=== PATIENT | female | born 1960 | race Caucasian/White ===

== ENCOUNTER 2016-06-10 07:10 | Outpatient (CLI) | payer OTHER ==
[2016-06-10 08:36] LABS: #Basophils 0.1 thou/uL (0.0-0.2); #Eosinphils 1.2 thou/uL (0.0-0.7); #Lymphocytes 2.7 thou/uL (1.20-3.40); #Monocytes 0.5 thou/uL (0.11-0.59); #Neutrophils 6.7 thou/uL (1.40-6.50); %Basophils 1.3 % (0.0-1.0); %Eosinophils 10.7 % (0.0-10.0); %Monocytes 4.5 % (0.0-10.0); Mean Platelet Volume 6.7 fL (7.4-10.4); Red Blood Cell (RBC) Count 4.97 mill/uL (4.20-5.40); White Blood Cell (WBC) Count 11.2 thou/uL (4.8-10.8)
[2016-06-10 08:44] LABS: ALT (SGPT) 21 U/L (0-55); AST (SGOT) 14 U/L (5-34); Alkaline Phosphatase 57 U/L (40-150); Anion Gap 19 mmol/L (10-20); BUN (Urea Nitrogen) 23 mg/dL (9.8-20.1); Bilirubin, Total 0.3 mg/dL (0.2-1.2); Calc. Creatinine Clearance 0 mL/min (70-130); Calcium 9.2 mg/dL (7.8-10.44); Carbon Dioxide 18 mmol/L (22-29); Chloride 105 mmol/L (98-107); Estimated GFR-MDRD 57; Globulin 2.7 g/dL (2.4-3.5); Protein, Total 6.7 g/dL (6.0-8.3)
== END 2016-06-10 07:11 | disposition home or self-care (01) ==
LOC: BURLAB 07:10
PROVIDERS: ATTEND Internal Medicine Rheumatology
DX: M05.79 Rheumatoid arthritis with rheumatoid factor of multiple sites without organ or systems involvement (principal)
CPT/HCPCS: 36415; 80053; 85025; 85652; 86140

== ENCOUNTER 2016-08-29 07:18 | Outpatient (CLI) | payer OTHER ==
[2016-08-29 07:43] LABS: #Basophils 0.2 thou/uL (0.0-0.2); #Monocytes 0.9 thou/uL (0.11-0.59); #Neutrophils 7.2 thou/uL (1.40-6.50); %Eosinophils 8.9 % (0.0-10.0); %Lymphocytes 17.8 % (21.0-51.0); %Monocytes 7.7 % (0.0-10.0); %Neutrophils 63.7 % (42.0-75.0); Hemoglobin 13.5 g/dL (12.0-16.0); Mean Corpuscular HGB CONC 33.2 g/dL (32.0-36.0); Mean Corpuscular Hemoglobin 30.3 pg (27.0-31.0); Mean Corpuscular Volume 91.1 fl (81.0-99.0); Mean Platelet Volume 7.7 fL (7.4-10.4); Platelet Count 358 thou/uL (130-400); RBC Distribution Width 16.4 % (11.5-14.5); Red Blood Cell (RBC) Count 4.45 mill/uL (4.20-5.40); White Blood Cell (WBC) Count 11.2 thou/uL (4.8-10.8)
[2016-08-29 08:02] LABS: ALT (SGPT) 22 U/L (8-55); AST (SGOT) 16 U/L (5-34); Albumin 4.1 g/dL (3.5-5.0); Alkaline Phosphatase 62 U/L (40-150); Anion Gap 18 mmol/L (10-20); BUN (Urea Nitrogen) 22 mg/dL (9.8-20.1); Bilirubin, Total 0.6 mg/dL (0.2-1.2); Calc. Creatinine Clearance 0 mL/min (70-130); Calcium 9.4 mg/dL (7.8-10.44); Carbon Dioxide 18 mmol/L (22-29); Chloride 106 mmol/L (98-107); Estimated GFR-MDRD 47; Globulin 2.9 g/dL (2.4-3.5); Glucose 232 mg/dL (70-105); Potassium 4.2 mmol/L (3.5-5.1); Sodium 138 mmol/L (136-145)
== END 2016-08-29 07:19 | disposition home or self-care (01) ==
LOC: BURLAB 07:18
PROVIDERS: ATTEND Internal Medicine Rheumatology
DX: M05.79 Rheumatoid arthritis with rheumatoid factor of multiple sites without organ or systems involvement (principal)
CPT/HCPCS: 36415; 80053; 85025; 85652; 86140

== ENCOUNTER 2016-12-05 07:27 | Outpatient (CLI) | payer OTHER ==
[2016-12-05 08:04] LABS: #Basophils 0.1 thou/uL (0.0-0.2); #Eosinphils 1.2 thou/uL (0.0-0.7); #Lymphocytes 2.8 thou/uL (1.20-3.40); #Monocytes 0.7 thou/uL (0.11-0.59); %Basophils 0.7 % (0.0-1.0); %Eosinophils 10.1 % (0.0-10.0); %Monocytes 5.6 % (0.0-10.0); %Neutrophils 59.6 % (42.0-75.0); Hemoglobin 13.4 g/dL (12.0-16.0); Mean Corpuscular Hemoglobin 30.8 pg (27.0-31.0); Mean Corpuscular Volume 90.5 fl (81.0-99.0); Mean Platelet Volume 7.9 fL (7.4-10.4); Platelet Count 279 thou/uL (130-400); RBC Distribution Width 13.2 % (11.5-14.5); Red Blood Cell (RBC) Count 4.34 mill/uL (4.20-5.40); White Blood Cell (WBC) Count 11.7 thou/uL (4.8-10.8)
[2016-12-05 08:17] LABS: ALT (SGPT) 20 U/L (8-55); AST (SGOT) 13 U/L (5-34); Albumin 3.9 g/dL (3.5-5.0); Alkaline Phosphatase 62 U/L (40-150); Anion Gap 16 mmol/L (10-20); BUN (Urea Nitrogen) 17 mg/dL (9.8-20.1); Bilirubin, Total 0.4 mg/dL (0.2-1.2); Calc. Creatinine Clearance 0 mL/min (70-130); Calcium 9.2 mg/dL (7.8-10.44); Carbon Dioxide 22 mmol/L (22-29); Chloride 105 mmol/L (98-107); Estimated GFR-MDRD 68; Globulin 2.8 g/dL (2.4-3.5); Glucose 180 mg/dL (70-105); Potassium 4.8 mmol/L (3.5-5.1); Protein, Total 6.7 g/dL (6.0-8.3); Sodium 138 mmol/L (136-145)
[2016-12-05 17:15] LABS: CRP (Inflammatory) 1.17 mg/dL (= or < 0.5)
== END 2016-12-05 07:28 | disposition home or self-care (01) ==
LOC: BURLAB 07:27
PROVIDERS: ATTEND Internal Medicine Rheumatology
DX: M05.79 Rheumatoid arthritis with rheumatoid factor of multiple sites without organ or systems involvement (principal)
CPT/HCPCS: 36415; 80053; 85025; 85652; 86140

== ENCOUNTER 2019-12-03 07:32 | Outpatient (CLI) | payer OTHER ==
[2019-12-03 08:13] LABS: #Basophils 0.1 thou/uL (0.0-0.2); #Eosinphils 1.5 thou/uL (0.0-0.7); #Lymphocytes 2.6 thou/uL (1.20-3.40); #Monocytes 0.7 thou/uL (0.11-0.59); #Neutrophils 8.4 thou/uL (1.40-6.50); %Eosinophils 11.2 % (0.0-10.0); %Lymphocytes 19.4 % (21.0-51.0); %Monocytes 5.4 % (0.0-10.0); %Neutrophils 63.1 % (42.0-75.0); Hemoglobin 11.9 g/dL (12.0-16.0); Mean Corpuscular HGB CONC 31.3 g/dL (32.0-36.0); Mean Corpuscular Hemoglobin 28.6 pg (27.0-31.0); Mean Corpuscular Volume 91.2 fL (78.0-98.0); Mean Platelet Volume 8.1 fL (7.4-10.4); Platelet Count 302 thou/uL (130-400); RBC Distribution Width 13.9 % (11.5-14.5); Red Blood Cell (RBC) Count 4.18 mill/uL (4.20-5.40); White Blood Cell (WBC) Count 13.3 thou/uL (4.8-10.8)
[2019-12-03 08:23] LABS: ALT (SGPT) 24 U/L (8-55); AST (SGOT) 16 U/L (5-34); Albumin 4.1 g/dL (3.5-5.0); Alkaline Phosphatase 51 U/L (40-110); Anion Gap 18 mmol/L (10-20); BUN (Urea Nitrogen) 23 mg/dL (9.8-20.1); Bilirubin, Total 0.2 mg/dL (0.2-1.2); CRP (Inflammatory) 0.64 mg/dL (= or < 0.5); Calc. Creatinine Clearance 0 mL/min (70-130); Calcium 8.8 mg/dL (7.8-10.44); Carbon Dioxide 21 mmol/L (22-29); Chloride 101 mmol/L (98-107); Estimated GFR-MDRD 51; Globulin 2.6 g/dL (2.4-3.5); Glucose 192 mg/dL (70-105); Potassium 4.6 mmol/L (3.5-5.1); Protein, Total 6.7 g/dL (6.0-8.3); Sodium 135 mmol/L (136-145)
== END 2019-12-03 07:33 | disposition home or self-care (01) ==
LOC: BURLAB 07:32
PROVIDERS: ATTEND Internal Medicine Rheumatology
DX: M05.79 Rheumatoid arthritis with rheumatoid factor of multiple sites without organ or systems involvement (principal)
CPT/HCPCS: 36415; 80053; 85025; 85652; 86140

== ENCOUNTER 2020-03-05 07:23 | Outpatient (CLI) | payer OTHER ==
[2020-03-05 07:56] LABS: #Basophils 0.1 thou/uL (0.0-0.2); #Eosinphils 0.3 thou/uL (0.0-0.7); #Lymphocytes 2.7 thou/uL (1.20-3.40); #Monocytes 0.7 thou/uL (0.11-0.59); #Neutrophils 8.2 thou/uL (1.40-6.50); %Basophils 0.8 % (0.0-1.0); %Eosinophils 2.9 % (0.0-10.0); %Lymphocytes 22.2 % (21.0-51.0); %Monocytes 6.1 % (0.0-10.0); %Neutrophils 68.1 % (42.0-75.0); Hemoglobin 12.6 g/dL (12.0-16.0); Mean Corpuscular HGB CONC 32.2 g/dL (32.0-36.0); Mean Corpuscular Hemoglobin 27.6 pg (27.0-31.0); Mean Corpuscular Volume 85.7 fL (78.0-98.0); Platelet Count 335 thou/uL (130-400); Red Blood Cell (RBC) Count 4.57 mill/uL (4.20-5.40)
[2020-03-05 08:10] LABS: ALT (SGPT) 19 U/L (8-55); AST (SGOT) 9 U/L (5-34); Albumin 3.8 g/dL (3.5-5.0); Alkaline Phosphatase 52 U/L (40-110); Anion Gap 16 mmol/L (10-20); BUN (Urea Nitrogen) 22 mg/dL (9.8-20.1); Bilirubin, Total 0.3 mg/dL (0.2-1.2); CRP (Inflammatory) 0.72 mg/dL (= or < 0.5); Calc. Creatinine Clearance 0 mL/min (70-130); Calcium 8.7 mg/dL (7.8-10.44); Carbon Dioxide 24 mmol/L (22-29); Chloride 101 mmol/L (98-107); Estimated GFR-MDRD 69; Globulin 2.5 g/dL (2.4-3.5); Glucose 166 mg/dL (70-105); Potassium 4.6 mmol/L (3.5-5.1); Protein, Total 6.3 g/dL (6.0-8.3); Sodium 136 mmol/L (136-145)
== END 2020-03-05 07:24 | disposition home or self-care (01) ==
LOC: BURLAB 07:23
PROVIDERS: ATTEND Internal Medicine Rheumatology
DX: M05.79 Rheumatoid arthritis with rheumatoid factor of multiple sites without organ or systems involvement (principal)
CPT/HCPCS: 36415; 80053; 85025; 85652; 86140

== ENCOUNTER 2020-05-12 07:33 | Outpatient (CLI) | payer OTHER ==
[2020-05-12 11:22] LABS: #Basophils 0.1 thou/uL (0.0-0.2); #Eosinphils 0.3 thou/uL (0.0-0.7); #Lymphocytes 2.4 thou/uL (1.20-3.40); #Monocytes 0.6 thou/uL (0.11-0.59); #Neutrophils 9.1 thou/uL (1.40-6.50); %Basophils 0.7 % (0.0-1.0); %Eosinophils 2.5 % (0.0-10.0); %Lymphocytes 19.6 % (21.0-51.0); %Monocytes 4.5 % (0.0-10.0); %Neutrophils 72.7 % (42.0-75.0); Hemoglobin 12.1 g/dL (12.0-16.0); Mean Corpuscular HGB CONC 31.5 g/dL (32.0-36.0); Mean Corpuscular Hemoglobin 27.4 pg (27.0-31.0); Mean Corpuscular Volume 87.1 fL (78.0-98.0); Mean Platelet Volume 7.7 fL (7.4-10.4); Platelet Count 421 thou/uL (130-400); RBC Distribution Width 16.5 % (11.5-14.5); Red Blood Cell (RBC) Count 4.41 mill/uL (4.20-5.40); White Blood Cell (WBC) Count 12.4 thou/uL (4.8-10.8)
[2020-05-12 11:54] LABS: ALT (SGPT) 32 U/L (8-55); AST (SGOT) 25 U/L (5-34); Alkaline Phosphatase 54 U/L (40-110); Anion Gap 15 mmol/L (10-20); BUN (Urea Nitrogen) 25 mg/dL (9.8-20.1); Bilirubin, Total 0.2 mg/dL (0.2-1.2); CRP (Inflammatory) 0.77 mg/dL (= or < 0.5); Calc. Creatinine Clearance 0 mL/min (70-130); Calcium 9.3 mg/dL (7.8-10.44); Carbon Dioxide 26 mmol/L (22-29); Chloride 99 mmol/L (98-107); Globulin 2.5 g/dL (2.4-3.5); Glucose 235 mg/dL (70-105); Potassium 5.4 mmol/L (3.5-5.1); Protein, Total 6.5 g/dL (6.0-8.3); Sodium 135 mmol/L (136-145)
== END 2020-05-12 07:34 | disposition home or self-care (01) ==
LOC: BURLAB 07:33
PROVIDERS: ATTEND Internal Medicine Rheumatology
DX: M05.79 Rheumatoid arthritis with rheumatoid factor of multiple sites without organ or systems involvement (principal)
CPT/HCPCS: 36415; 80053; 85025; 85652; 86140

== ENCOUNTER 2020-08-11 07:13 | Outpatient (CLI) | payer OTHER ==
[2020-08-11 08:04] LABS: #Basophils 0.1 thou/uL (0.0-0.2); #Eosinphils 0.3 thou/uL (0.0-0.7); #Lymphocytes 2.2 thou/uL (1.20-3.40); #Monocytes 0.6 thou/uL (0.11-0.59); #Neutrophils 7.5 thou/uL (1.40-6.50); %Basophils 0.8 % (0.0-1.0); %Eosinophils 2.9 % (0.0-10.0); %Lymphocytes 20.2 % (21.0-51.0); %Monocytes 5.7 % (0.0-10.0); %Neutrophils 70.5 % (42.0-75.0); Hemoglobin 13.1 g/dL (12.0-16.0); Mean Corpuscular Hemoglobin 30.7 pg (27.0-31.0); Mean Corpuscular Volume 90.2 fL (78.0-98.0); Platelet Count 371 thou/uL (130-400); RBC Distribution Width 14.5 % (11.5-14.5); Red Blood Cell (RBC) Count 4.28 mill/uL (4.20-5.40); White Blood Cell (WBC) Count 10.7 thou/uL (4.8-10.8)
[2020-08-11 08:21] LABS: ALT (SGPT) 28 U/L (8-55); AST (SGOT) 13 U/L (5-34); Albumin 4.2 g/dL (3.5-5.0); Alkaline Phosphatase 49 U/L (40-110); Anion Gap 18 mmol/L (10-20); BUN (Urea Nitrogen) 21 mg/dL (9.8-20.1); Bilirubin, Total 0.3 mg/dL (0.2-1.2); Calc. Creatinine Clearance 0 mL/min (70-130); Calcium 9.5 mg/dL (7.8-10.44); Carbon Dioxide 21 mmol/L (22-29); Chloride 102 mmol/L (98-107); Globulin 2.3 g/dL (2.4-3.5); Glucose 231 mg/dL (70-105); Potassium 4.7 mmol/L (3.5-5.1); Protein, Total 6.5 g/dL (6.0-8.3); Sodium 136 mmol/L (136-145)
== END 2020-08-11 07:14 | disposition home or self-care (01) ==
LOC: BURLABSP 07:13
PROVIDERS: ATTEND Internal Medicine Rheumatology
DX: M05.79 Rheumatoid arthritis with rheumatoid factor of multiple sites without organ or systems involvement (principal)
CPT/HCPCS: 36415; 80053; 85025; 85652; 86140

== ENCOUNTER 2020-11-02 07:24 | Outpatient (CLI) | payer OTHER ==
[2020-11-02 07:48] LABS: #Basophils 0.1 thou/uL (0.0-0.2); #Eosinphils 0.2 thou/uL (0.0-0.7); #Monocytes 0.7 thou/uL (0.11-0.59); #Neutrophils 7.7 thou/uL (1.40-6.50); %Eosinophils 1.6 % (0.0-10.0); %Lymphocytes 18.8 % (21.0-51.0); %Monocytes 6.8 % (0.0-10.0); %Neutrophils 71.8 % (42.0-75.0); Hemoglobin 12.1 g/dL (12.0-16.0); Mean Corpuscular HGB CONC 32.4 g/dL (32.0-36.0); Mean Corpuscular Hemoglobin 28.6 pg (27.0-31.0); Mean Corpuscular Volume 88.3 fL (78.0-98.0); Mean Platelet Volume 6.1 fL (7.4-10.4); Platelet Count 442 thou/uL (130-400); RBC Distribution Width 15.2 % (11.5-14.5); Red Blood Cell (RBC) Count 4.23 mill/uL (4.20-5.40); White Blood Cell (WBC) Count 10.7 thou/uL (4.8-10.8)
[2020-11-02 08:18] LABS: ALT (SGPT) 24 U/L (8-55); AST (SGOT) 16 U/L (5-34); Albumin 3.7 g/dL (3.5-5.0); Alkaline Phosphatase 52 U/L (40-110); Anion Gap 16 mmol/L (10-20); BUN (Urea Nitrogen) 14 mg/dL (9.8-20.1); Bilirubin, Total 0.3 mg/dL (0.2-1.2); CRP (Inflammatory) 2.36 mg/dL (= or < 0.5); Calc. Creatinine Clearance 0 mL/min (70-130); Calcium 9.4 mg/dL (7.8-10.44); Carbon Dioxide 24 mmol/L (22-29); Chloride 100 mmol/L (98-107); Globulin 2.6 g/dL (2.4-3.5); Glucose 158 mg/dL (70-105); Potassium 4.5 mmol/L (3.5-5.1); Protein, Total 6.3 g/dL (6.0-8.3); Sodium 135 mmol/L (136-145)
== END 2020-11-02 07:25 | disposition home or self-care (01) ==
LOC: BURLAB 07:24
PROVIDERS: ATTEND Internal Medicine Rheumatology
DX: M05.79 Rheumatoid arthritis with rheumatoid factor of multiple sites without organ or systems involvement (principal)
CPT/HCPCS: 36415; 80053; 85025; 85652; 86140

== ENCOUNTER 2021-02-09 07:15 | Outpatient (CLI) | payer OTHER ==
[2021-02-09 08:18] LABS: #Basophils 0.1 thou/uL (0.0-0.2); #Eosinphils 0.5 thou/uL (0.0-0.7); #Lymphocytes 2.6 thou/uL (1.20-3.40); #Monocytes 0.6 thou/uL (0.11-0.59); #Neutrophils 7.1 thou/uL (1.40-6.50); %Basophils 0.8 % (0.0-1.0); %Eosinophils 4.3 % (0.0-10.0); %Lymphocytes 24.3 % (21.0-51.0); %Monocytes 5.6 % (0.0-10.0); %Neutrophils 65.1 % (42.0-75.0); Hemoglobin 12.9 g/dL (12.0-16.0); Mean Corpuscular HGB CONC 32.8 g/dL (32.0-36.0); Mean Corpuscular Hemoglobin 29.6 pg (27.0-31.0); Mean Corpuscular Volume 90.2 fL (78.0-98.0); Mean Platelet Volume 6.9 fL (7.4-10.4); Platelet Count 363 thou/uL (130-400); RBC Distribution Width 15.5 % (11.5-14.5); Red Blood Cell (RBC) Count 4.35 mill/uL (4.20-5.40); White Blood Cell (WBC) Count 10.8 thou/uL (4.8-10.8)
[2021-02-09 08:37] LABS: ALT (SGPT) 37 U/L (8-55); AST (SGOT) 26 U/L (5-34); Alkaline Phosphatase 54 U/L (40-110); Anion Gap 16 mmol/L (10-20); BUN (Urea Nitrogen) 17 mg/dL (9.8-20.1); Bilirubin, Total 0.4 mg/dL (0.2-1.2); Calc. Creatinine Clearance 0 mL/min (70-130); Calcium 10.2 mg/dL (7.8-10.44); Carbon Dioxide 25 mmol/L (23-31); Chloride 100 mmol/L (98-107); Globulin 2.7 g/dL (2.4-3.5); Glucose 174 mg/dL (80-115); Potassium 4.9 mmol/L (3.5-5.1); Protein, Total 6.7 g/dL (5.8-8.1); Sodium 136 mmol/L (136-145)
== END 2021-02-09 07:16 | disposition home or self-care (01) ==
LOC: BURLAB 07:15
PROVIDERS: ATTEND Internal Medicine Rheumatology
DX: M05.79 Rheumatoid arthritis with rheumatoid factor of multiple sites without organ or systems involvement (principal)
CPT/HCPCS: 36415; 80053; 85025; 85652; 86140

== ENCOUNTER 2021-05-11 07:08 | Outpatient (CLI) | payer OTHER ==
[2021-05-11 07:54] LABS: #Basophils 0.1 thou/uL (0.0-0.2); #Eosinphils 0.3 thou/uL (0.0-0.7); #Lymphocytes 1.5 thou/uL (1.20-3.40); #Monocytes 0.3 thou/uL (0.11-0.59); #Neutrophils 5.1 thou/uL (1.40-6.50); %Basophils 1.3 % (0.0-1.0); %Eosinophils 4.4 % (0.0-10.0); %Lymphocytes 20.8 % (21.0-51.0); %Monocytes 4.6 % (0.0-10.0); Hemoglobin 12.8 g/dL (12.0-16.0); Mean Corpuscular Hemoglobin 29.4 pg (27.0-31.0); Mean Platelet Volume 7.3 fL (7.4-10.4); Platelet Count 310 thou/uL (130-400); RBC Distribution Width 14.2 % (11.5-14.5); Red Blood Cell (RBC) Count 4.36 mill/uL (4.20-5.40); White Blood Cell (WBC) Count 7.4 thou/uL (4.8-10.8)
[2021-05-11 08:16] LABS: ALT (SGPT) 47 U/L (8-55); AST (SGOT) 29 U/L (5-34); Albumin 3.8 g/dL (3.4-4.8); Alkaline Phosphatase 55 U/L (40-110); Anion Gap 15 mmol/L (10-20); BUN (Urea Nitrogen) 17 mg/dL (9.8-20.1); Bilirubin, Total 0.5 mg/dL (0.2-1.2); CRP (Inflammatory) 2.48 mg/dL (= or < 0.5); Calc. Creatinine Clearance 0 mL/min (70-130); Calcium 8.3 mg/dL (7.8-10.44); Carbon Dioxide 20 mmol/L (23-31); Chloride 103 mmol/L (98-107); Globulin 2.6 g/dL (2.4-3.5); Glucose 230 mg/dL (80-115); Potassium 4.3 mmol/L (3.5-5.1); Protein, Total 6.4 g/dL (5.8-8.1); Sodium 134 mmol/L (136-145)
== END 2021-05-11 07:09 | disposition home or self-care (01) ==
LOC: BURLAB 07:08
PROVIDERS: ATTEND Internal Medicine Rheumatology
DX: M05.79 Rheumatoid arthritis with rheumatoid factor of multiple sites without organ or systems involvement (principal)
CPT/HCPCS: 80053; 85025; 85652; 86140

== ENCOUNTER 2021-08-11 07:29 | Outpatient (CLI) | payer OTHER ==
[2021-08-11 08:12] LABS: ALT (SGPT) 24 U/L (8-55); AST (SGOT) 14 U/L (5-34); Albumin 3.8 g/dL (3.4-4.8); Alkaline Phosphatase 55 U/L (40-110); Anion Gap 16 mmol/L (10-20); BUN (Urea Nitrogen) 19 mg/dL (9.8-20.1); Bilirubin, Total 0.4 mg/dL (0.2-1.2); CRP (Inflammatory) 1.43 mg/dL (= or < 0.5); Calc. Creatinine Clearance 0 mL/min (70-130); Calcium 8.9 mg/dL (7.8-10.44); Carbon Dioxide 24 mmol/L (23-31); Chloride 101 mmol/L (98-107); Globulin 3.4 g/dL (2.4-3.5); Glucose 231 mg/dL (80-115); Potassium 4.5 mmol/L (3.5-5.1); Protein, Total 7.2 g/dL (5.8-8.1); Sodium 136 mmol/L (136-145)
[2021-08-11 08:23] LABS: #Basophils 0.1 thou/uL (0.0-0.2); #Eosinphils 0.4 thou/uL (0.0-0.7); #Lymphocytes 1.7 thou/uL (1.20-3.40); #Monocytes 0.5 thou/uL (0.11-0.59); %Basophils 0.7 % (0.0-1.0); %Eosinophils 4.4 % (0.0-10.0); %Lymphocytes 17.8 % (21.0-51.0); %Monocytes 5.1 % (0.0-10.0); Hemoglobin 12.5 g/dL (12.0-16.0); Mean Corpuscular HGB CONC 33.3 g/dL (32.0-36.0); Mean Corpuscular Hemoglobin 30.2 pg (27.0-31.0); Mean Corpuscular Volume 90.7 fL (78.0-98.0); Platelet Count 334 thou/uL (130-400); RBC Distribution Width 13.9 % (11.5-14.5); Red Blood Cell (RBC) Count 4.13 mill/uL (4.20-5.40); White Blood Cell (WBC) Count 9.8 thou/uL (4.8-10.8)
== END 2021-08-11 07:30 | disposition home or self-care (01) ==
LOC: BURLAB 07:29
PROVIDERS: ATTEND Internal Medicine Rheumatology
DX: M05.79 Rheumatoid arthritis with rheumatoid factor of multiple sites without organ or systems involvement (principal)
CPT/HCPCS: 36415; 80053; 85025; 85652; 86140

== ENCOUNTER 2021-11-08 07:25 | Outpatient (CLI) | payer OTHER ==
[2021-11-08 07:45] LABS: #Basophils 0.1 thou/uL (0.0-0.2); #Eosinphils 0.1 thou/uL (0.0-0.7); #Lymphocytes 0.8 thou/uL (1.20-3.40); #Monocytes 0.9 thou/uL (0.11-0.59); #Neutrophils 7.3 thou/uL (1.40-6.50); %Eosinophils 1.3 % (0.0-10.0); %Lymphocytes 8.5 % (21.0-51.0); %Monocytes 9.9 % (0.0-10.0); %Neutrophils 79.3 % (42.0-75.0); Hemoglobin 12.3 g/dL (12.0-16.0); Mean Corpuscular HGB CONC 34.9 g/dL (32.0-36.0); Mean Corpuscular Hemoglobin 29.8 pg (27.0-31.0); Mean Corpuscular Volume 85.3 fL (78.0-98.0); Mean Platelet Volume 6.7 fL (7.4-10.4); Platelet Count 480 thou/uL (130-400); RBC Distribution Width 13.5 % (11.5-14.5); Red Blood Cell (RBC) Count 4.12 mill/uL (4.20-5.40); White Blood Cell (WBC) Count 9.1 thou/uL (4.8-10.8)
[2021-11-08 07:59] LABS: ALT (SGPT) 22 U/L (8-55); AST (SGOT) 22 U/L (5-34); Albumin 3.9 g/dL (3.4-4.8); Alkaline Phosphatase 84 U/L (40-110); Anion Gap 22 mmol/L (10-20); BUN (Urea Nitrogen) 40 mg/dL (9.8-20.1); Bilirubin, Total 0.6 mg/dL (0.2-1.2); Calc. Creatinine Clearance 0 mL/min (70-130); Calcium 10.3 mg/dL (7.8-10.44); Carbon Dioxide 19 mmol/L (23-31); Chloride 90 mmol/L (98-107); Estimated GFR 33; Globulin 4.1 g/dL (2.4-3.5); Glucose 205 mg/dL (80-115); Potassium 4.1 mmol/L (3.5-5.1); Sodium 127 mmol/L (136-145)
== END 2021-11-08 07:26 | disposition home or self-care (01) ==
LOC: BURLAB 07:25
PROVIDERS: ATTEND Internal Medicine Rheumatology
DX: M05.79 Rheumatoid arthritis with rheumatoid factor of multiple sites without organ or systems involvement (principal)
CPT/HCPCS: 36415; 80053; 85025; 85652; 86140

== ENCOUNTER 2021-12-06 07:59 | Emergency (ER) | payer BC ==
[2021-12-06 08:39] LABS: #Basophils 0.1 thou/uL (0.0-0.2); #Lymphocytes 0.9 thou/uL (1.20-3.40); #Monocytes 0.8 thou/uL (0.11-0.59); #Neutrophils 12.6 thou/uL (1.40-6.50); %Basophils 0.6 % (0.0-1.0); %Lymphocytes 6.5 % (21.0-51.0); %Monocytes 5.7 % (0.0-10.0); %Neutrophils 87.3 % (42.0-75.0); Hemoglobin 14.2 g/dL (12.0-16.0); Mean Corpuscular HGB CONC 32.8 g/dL (32.0-36.0); Mean Corpuscular Volume 85.2 fL (78.0-98.0); Mean Platelet Volume 8.9 fL (7.4-10.4); Platelet Count 342 thou/uL (130-400); RBC Distribution Width 14.2 % (11.5-14.5); Red Blood Cell (RBC) Count 5.09 mill/uL (4.20-5.40); White Blood Cell (WBC) Count 14.5 thou/uL (4.8-10.8)
[2021-12-06 08:49] LABS: ALT (SGPT) 19 U/L (8-55); AST (SGOT) 10 U/L (5-34); Albumin 4.3 g/dL (3.4-4.8); Alkaline Phosphatase 75 U/L (40-110); Anion Gap 25 mmol/L (10-20); BUN (Urea Nitrogen) 43 mg/dL (9.8-20.1); Bilirubin, Total 0.7 mg/dL (0.2-1.2); Calc. Creatinine Clearance 0 mL/min (70-130); Calcium 9.9 mg/dL (7.8-10.44); Carbon Dioxide 20 mmol/L (23-31); Chloride 93 mmol/L (98-107); Estimated GFR 21; Globulin 4.2 g/dL (2.4-3.5); Glucose 330 mg/dL (80-115); Potassium 3.7 mmol/L (3.5-5.1); Protein, Total 8.5 g/dL (5.8-8.1); Sodium 134 mmol/L (136-145)
[2021-12-06 09:06] LABS: Bilirubin Large (Negative); Blood, Urine Trace (Negative); Clarity Slightly Cloudy (Clear); Glucose, Urine (Dipstick) 100 mg/dL (Negative); Ketone, Urine 15 mg/dL (Negative); Leukocyte Moderate (Negative); Nitrite Negative (Negative); Protein, Urine (Dipstick) 30 mg/dL (Neg-Trace); Urobilinogen 0.2 mg/dL (Less than 2)
[2021-12-06 09:16] LABS: Bacteria/HPF 2+ HPF (None Seen)
[2021-12-06] MEDS ORDERED: INSULIN REGULAR IN 0.9 % NACL 100 UNIT/100 ML BAG ONE (10:02)
== END 2021-12-06 10:32 | disposition short-term general hospital (02) ==
LOC: BURERS 07:59
DX: E11.10 Type 2 diabetes mellitus with ketoacidosis without coma (principal); N19 Unspecified kidney failure; M06.9 Rheumatoid arthritis, unspecified
CPT/HCPCS: 36415; 71045; 80053; 81003; 81015; 83880; 84484; 85025; 87086; 93005; 96374; J1815

== ENCOUNTER 2021-12-17 12:57 | Inpatient (IN) | payer BC ==
[2021-12-17 15:31] VITALS: BMI 31.1
[2021-12-17] MEDS ORDERED: Dextrose 5% in Water 1,000 ML IV PRN (17:08)
[2021-12-17] MEDS ORDERED: Dextrose 50% Abboject 50 ML SYRINGE SLOW IVP PRN (17:08)
[2021-12-17] MEDS ORDERED: INFLIXIMAB DYYB 100 MG IV SCH (18:00)
[2021-12-17] MEDS: HumaLOG 300 UNITS/3 ML VIAL SC PRN (18:36)
[2021-12-17] MEDS: Apixaban 5 MG TAB PO SCH (20:21)
[2021-12-17] MEDS: Cyanocobalamin (Vitamin B-12) 1,000 MCG TAB PO SCH (20:21)
[2021-12-17] MEDS: Multivit, Therapeutic 1 TAB PO SCH (20:21)
[2021-12-17] MEDS: PYRIDOXINE 50 MG PO SCH (20:38)
[2021-12-18] MEDS ORDERED: PREDNISONE 1 MG TABLET PO SCH (08:00)
[2021-12-18] MEDS: Alogliptin 25 MG TAB PO SCH (08:17)
[2021-12-18] MEDS: Amlodipine 5 MG TAB PO SCH (08:18)
[2021-12-18] MEDS: glyBURIDE 5 MG TAB PO SCH ×2 (08:18→16:43)
[2021-12-18] MEDS: Apixaban 5 MG TAB PO SCH ×2 (08:20→21:12)
[2021-12-18] MEDS: Losartan Potassium 50 MG TAB PO SCH (08:21)
[2021-12-18] MEDS: Lantus 1000 UNITS/10 ML VIAL SC SCH (08:21)
[2021-12-18] MEDS: Folic Acid 1 MG TAB PO SCH (08:21)
[2021-12-18] MEDS ORDERED: predniSONE 5 MG TAB PO SCH (11:00)
[2021-12-18] MEDS: HumaLOG 300 UNITS/3 ML VIAL SC PRN ×3 (11:55→21:11)
[2021-12-18] MEDS: Multivit, Therapeutic 1 TAB PO SCH (21:12)
[2021-12-18] MEDS: Cyanocobalamin (Vitamin B-12) 1,000 MCG TAB PO SCH (21:13)
[2021-12-18] MEDS: PYRIDOXINE 50 MG PO SCH (22:09)
[2021-12-19] MEDS: Lantus 1000 UNITS/10 ML VIAL SC SCH (08:09)
[2021-12-19] MEDS: glyBURIDE 5 MG TAB PO SCH ×2 (08:11→17:00)
[2021-12-19] MEDS: predniSONE 5 MG TAB PO SCH (08:12)
[2021-12-19] MEDS: Amlodipine 5 MG TAB PO SCH (08:13)
[2021-12-19] MEDS: Alogliptin 25 MG TAB PO SCH (08:13)
[2021-12-19] MEDS: Losartan Potassium 50 MG TAB PO SCH (08:14)
[2021-12-19] MEDS: Apixaban 5 MG TAB PO SCH ×2 (08:14→20:36)
[2021-12-19] MEDS: Folic Acid 1 MG TAB PO SCH (08:14)
[2021-12-19] MEDS: HumaLOG 300 UNITS/3 ML VIAL SC PRN (11:50)
[2021-12-19] MEDS: Multivit, Therapeutic 1 TAB PO SCH (20:36)
[2021-12-19] MEDS: Cyanocobalamin (Vitamin B-12) 1,000 MCG TAB PO SCH (20:36)
[2021-12-19] MEDS: PYRIDOXINE 50 MG PO SCH (20:45)
[2021-12-20] MEDS: predniSONE 5 MG TAB PO SCH (08:03)
[2021-12-20] MEDS: Folic Acid 1 MG TAB PO SCH (08:04)
[2021-12-20] MEDS: Amlodipine 5 MG TAB PO SCH (08:04)
[2021-12-20] MEDS: Losartan Potassium 50 MG TAB PO SCH (08:05)
[2021-12-20] MEDS: glyBURIDE 5 MG TAB PO SCH ×2 (08:05→17:11)
[2021-12-20] MEDS: Apixaban 5 MG TAB PO SCH ×2 (08:05→20:50)
[2021-12-20] MEDS: HumaLOG 300 UNITS/3 ML VIAL SC PRN ×3 (08:06→20:42)
[2021-12-20] MEDS: Lantus 1000 UNITS/10 ML VIAL SC SCH (08:06)
[2021-12-20] MEDS: Alogliptin 25 MG TAB PO SCH (08:06)
[2021-12-20] MEDS: Multivit, Therapeutic 1 TAB PO SCH (20:50)
[2021-12-20] MEDS: Cyanocobalamin (Vitamin B-12) 1,000 MCG TAB PO SCH (20:50)
[2021-12-20] MEDS: PYRIDOXINE 50 MG PO SCH (20:53)
[2021-12-21] MEDS: glyBURIDE 5 MG TAB PO SCH ×2 (08:07→16:57)
[2021-12-21] MEDS: predniSONE 5 MG TAB PO SCH (08:07)
[2021-12-21] MEDS: Losartan Potassium 50 MG TAB PO SCH (08:08)
[2021-12-21] MEDS: Folic Acid 1 MG TAB PO SCH (08:08)
[2021-12-21] MEDS: Apixaban 5 MG TAB PO SCH ×2 (08:09→20:43)
[2021-12-21] MEDS: Amlodipine 5 MG TAB PO SCH (08:09)
[2021-12-21] MEDS: Lantus 1000 UNITS/10 ML VIAL SC SCH (08:12)
[2021-12-21] MEDS: Alogliptin 25 MG TAB PO SCH (08:52)
[2021-12-21] MEDS: HumaLOG 300 UNITS/3 ML VIAL SC PRN ×2 (11:59→20:44)
[2021-12-21] MEDS: Melatonin 3 MG TAB PO PRN (20:43)
[2021-12-21] MEDS: Cyanocobalamin (Vitamin B-12) 1,000 MCG TAB PO SCH (20:43)
[2021-12-21] MEDS: Multivit, Therapeutic 1 TAB PO SCH (20:43)
[2021-12-22] MEDS: Losartan Potassium 50 MG TAB PO SCH (08:19)
[2021-12-22] MEDS: Alogliptin 25 MG TAB PO SCH (08:19)
[2021-12-22] MEDS: Apixaban 5 MG TAB PO SCH ×2 (08:20→20:46)
[2021-12-22] MEDS: Amlodipine 5 MG TAB PO SCH (08:20)
[2021-12-22] MEDS: Folic Acid 1 MG TAB PO SCH (08:21)
[2021-12-22] MEDS: glyBURIDE 5 MG TAB PO SCH ×2 (08:21→16:52)
[2021-12-22] MEDS: predniSONE 5 MG TAB PO SCH (08:21)
[2021-12-22] MEDS: Lantus 1000 UNITS/10 ML VIAL SC SCH (08:22)
[2021-12-22] MEDS: HumaLOG 300 UNITS/3 ML VIAL SC PRN ×2 (11:53→16:53)
[2021-12-22] MEDS: Multivit, Therapeutic 1 TAB PO SCH (20:46)
[2021-12-22] MEDS: Cyanocobalamin (Vitamin B-12) 1,000 MCG TAB PO SCH (20:49)
[2021-12-23 05:18] LABS: Hemoglobin 12.2 g/dL (12.0-16.0); Platelet Count 310 thou/uL (130-400)
[2021-12-23] MEDS: Alogliptin 25 MG TAB PO SCH (08:25)
[2021-12-23] MEDS: predniSONE 5 MG TAB PO SCH (08:26)
[2021-12-23] MEDS: Tamsulosin HCl 0.4 MG CAP PO SCH (08:27)
[2021-12-23] MEDS: Folic Acid 1 MG TAB PO SCH (08:27)
[2021-12-23] MEDS: Amlodipine 5 MG TAB PO SCH (08:28)
[2021-12-23] MEDS: Losartan Potassium 50 MG TAB PO SCH (08:29)
[2021-12-23] MEDS: glyBURIDE 5 MG TAB PO SCH ×2 (08:29→16:39)
[2021-12-23] MEDS: Apixaban 5 MG TAB PO SCH ×2 (08:33→20:37)
[2021-12-23] MEDS: Lantus 1000 UNITS/10 ML VIAL SC SCH (08:34)
[2021-12-23] MEDS: HumaLOG 300 UNITS/3 ML VIAL SC PRN ×2 (12:02→17:36)
[2021-12-23] MEDS: Cyanocobalamin (Vitamin B-12) 1,000 MCG TAB PO SCH (20:37)
[2021-12-23] MEDS: Melatonin 3 MG TAB PO PRN (20:37)
[2021-12-23] MEDS: Multivit, Therapeutic 1 TAB PO SCH (20:38)
[2021-12-24] MEDS: Alogliptin 25 MG TAB PO SCH (08:10)
[2021-12-24] MEDS: glyBURIDE 5 MG TAB PO SCH ×2 (08:10→16:49)
[2021-12-24] MEDS: predniSONE 5 MG TAB PO SCH (08:10)
[2021-12-24] MEDS: Tamsulosin HCl 0.4 MG CAP PO SCH (08:10)
[2021-12-24] MEDS: Apixaban 5 MG TAB PO SCH ×2 (08:11→20:53)
[2021-12-24] MEDS: Losartan Potassium 50 MG TAB PO SCH (08:11)
[2021-12-24] MEDS: Amlodipine 5 MG TAB PO SCH (08:11)
[2021-12-24] MEDS: Folic Acid 1 MG TAB PO SCH (08:11)
[2021-12-24] MEDS: Lantus 1000 UNITS/10 ML VIAL SC SCH (08:12)
[2021-12-24] MEDS: Ergocalciferol 1.25 MG(50,000 UNITS) CAP PO SCH (08:48)
[2021-12-24] MEDS: HumaLOG 300 UNITS/3 ML VIAL SC PRN ×2 (12:18→16:58)
[2021-12-24] MEDS: Melatonin 3 MG TAB PO PRN (20:53)
[2021-12-24] MEDS: Cyanocobalamin (Vitamin B-12) 1,000 MCG TAB PO SCH (20:53)
[2021-12-24] MEDS: Multivit, Therapeutic 1 TAB PO SCH (20:53)
[2021-12-25] MEDS: Tamsulosin HCl 0.4 MG CAP PO SCH (08:48)
[2021-12-25] MEDS: Alogliptin 25 MG TAB PO SCH (08:49)
[2021-12-25] MEDS: Folic Acid 1 MG TAB PO SCH (08:49)
[2021-12-25] MEDS: predniSONE 5 MG TAB PO SCH (08:49)
[2021-12-25] MEDS: Apixaban 5 MG TAB PO SCH ×2 (08:49→20:46)
[2021-12-25] MEDS: glyBURIDE 5 MG TAB PO SCH ×2 (08:49→16:54)
[2021-12-25] MEDS: Losartan Potassium 50 MG TAB PO SCH (08:50)
[2021-12-25] MEDS: Amlodipine 5 MG TAB PO SCH (08:50)
[2021-12-25] MEDS: Lantus 1000 UNITS/10 ML VIAL SC SCH (08:52)
[2021-12-25] MEDS: HumaLOG 300 UNITS/3 ML VIAL SC PRN (14:09)
[2021-12-25] MEDS: Melatonin 3 MG TAB PO PRN (20:46)
[2021-12-25] MEDS: Multivit, Therapeutic 1 TAB PO SCH (20:46)
[2021-12-25] MEDS: Cyanocobalamin (Vitamin B-12) 1,000 MCG TAB PO SCH (20:46)
[2021-12-26] MEDS: predniSONE 5 MG TAB PO SCH (08:49)
[2021-12-26] MEDS: Alogliptin 25 MG TAB PO SCH (08:49)
[2021-12-26] MEDS: glyBURIDE 5 MG TAB PO SCH ×2 (08:50→16:47)
[2021-12-26] MEDS: Tamsulosin HCl 0.4 MG CAP PO SCH (08:51)
[2021-12-26] MEDS: Amlodipine 5 MG TAB PO SCH (08:51)
[2021-12-26] MEDS: Lantus 1000 UNITS/10 ML VIAL SC SCH (08:52)
[2021-12-26] MEDS: Losartan Potassium 50 MG TAB PO SCH (08:52)
[2021-12-26] MEDS: Apixaban 5 MG TAB PO SCH ×2 (08:52→20:37)
[2021-12-26] MEDS: Folic Acid 1 MG TAB PO SCH (08:52)
[2021-12-26] MEDS: Cyanocobalamin (Vitamin B-12) 1,000 MCG TAB PO SCH (20:37)
[2021-12-26] MEDS: Melatonin 3 MG TAB PO PRN (20:37)
[2021-12-26] MEDS: Multivit, Therapeutic 1 TAB PO SCH (20:37)
[2021-12-27] MEDS: Lantus 1000 UNITS/10 ML VIAL SC SCH (08:23)
[2021-12-27] MEDS: Tamsulosin HCl 0.4 MG CAP PO SCH (08:24)
[2021-12-27] MEDS: Losartan Potassium 50 MG TAB PO SCH (08:24)
[2021-12-27] MEDS: Alogliptin 25 MG TAB PO SCH (08:25)
[2021-12-27] MEDS: Folic Acid 1 MG TAB PO SCH (08:25)
[2021-12-27] MEDS: Apixaban 5 MG TAB PO SCH ×2 (08:25→20:53)
[2021-12-27] MEDS: glyBURIDE 5 MG TAB PO SCH ×2 (08:25→17:00)
[2021-12-27] MEDS: Amlodipine 5 MG TAB PO SCH (08:25)
[2021-12-27] MEDS: predniSONE 5 MG TAB PO SCH (08:26)
[2021-12-27] MEDS: Bisacodyl 5 MG TAB PO PRN ×2 (08:35→20:52)
[2021-12-27] MEDS: HumaLOG 300 UNITS/3 ML VIAL SC PRN (16:59)
[2021-12-27 18:45] LABS: Anion Gap 16 mmol/L (10-20); BUN (Urea Nitrogen) 19 mg/dL (9.8-20.1); Calc. Creatinine Clearance 73 mL/min (70-130); Carbon Dioxide 19 mmol/L (23-31); Chloride 106 mmol/L (98-107); Estimated GFR 56; Glucose 166 mg/dL (80-115); Potassium 3.5 mmol/L (3.5-5.1); Sodium 137 mmol/L (136-145)
[2021-12-27] MEDS: Cyanocobalamin (Vitamin B-12) 1,000 MCG TAB PO SCH (20:52)
[2021-12-27] MEDS: Melatonin 3 MG TAB PO PRN (20:52)
[2021-12-27] MEDS: Multivit, Therapeutic 1 TAB PO SCH (20:52)
[2021-12-28] MEDS ORDERED: Iopamidol 370 76% 100 ML VIAL FS ONE (08:05)
[2021-12-28] MEDS: Lantus 1000 UNITS/10 ML VIAL SC SCH (08:16)
[2021-12-28] MEDS: HumaLOG 300 UNITS/3 ML VIAL SC PRN ×2 (08:16→12:10)
[2021-12-28] MEDS: glyBURIDE 5 MG TAB PO SCH ×2 (08:18→17:26)
[2021-12-28] MEDS: Alogliptin 25 MG TAB PO SCH (08:18)
[2021-12-28] MEDS: predniSONE 5 MG TAB PO SCH (08:18)
[2021-12-28] MEDS: Bisacodyl 5 MG TAB PO PRN (08:18)
[2021-12-28] MEDS: Apixaban 5 MG TAB PO SCH ×2 (08:19→21:27)
[2021-12-28] MEDS: Tamsulosin HCl 0.4 MG CAP PO SCH (08:19)
[2021-12-28] MEDS: Losartan Potassium 50 MG TAB PO SCH (08:20)
[2021-12-28] MEDS: Folic Acid 1 MG TAB PO SCH (08:20)
[2021-12-28] MEDS: Amlodipine 5 MG TAB PO SCH (08:20)
[2021-12-28 13:11] LABS: Anion Gap 14 mmol/L (10-20); BUN (Urea Nitrogen) 16 mg/dL (9.8-20.1); Calc. Creatinine Clearance 94 mL/min (70-130); Calcium 9.3 mg/dL (7.8-10.44); Carbon Dioxide 21 mmol/L (23-31); Chloride 105 mmol/L (98-107); Estimated GFR 76; Glucose 146 mg/dL (80-115); Potassium 3.4 mmol/L (3.5-5.1); Sodium 137 mmol/L (136-145)
[2021-12-28] MEDS: Cyanocobalamin (Vitamin B-12) 1,000 MCG TAB PO SCH (21:26)
[2021-12-28] MEDS: Multivit, Therapeutic 1 TAB PO SCH (21:27)
[2021-12-28] MEDS: Melatonin 3 MG TAB PO PRN (21:27)
[2021-12-29] MEDS: Lantus 1000 UNITS/10 ML VIAL SC SCH (08:37)
[2021-12-29] MEDS: Losartan Potassium 50 MG TAB PO SCH (08:38)
[2021-12-29] MEDS: predniSONE 5 MG TAB PO SCH (08:39)
[2021-12-29] MEDS: Potassium Chloride 20 MEQ TAB PO SCH (08:39)
[2021-12-29] MEDS: glyBURIDE 5 MG TAB PO SCH ×2 (08:40→17:08)
[2021-12-29] MEDS: Folic Acid 1 MG TAB PO SCH (08:40)
[2021-12-29] MEDS: Amlodipine 5 MG TAB PO SCH (08:40)
[2021-12-29] MEDS: Alogliptin 25 MG TAB PO SCH (08:40)
[2021-12-29] MEDS: Tamsulosin HCl 0.4 MG CAP PO SCH (08:41)
[2021-12-29] MEDS: Apixaban 5 MG TAB PO SCH ×2 (08:41→20:48)
[2021-12-29] MEDS: Bisacodyl 5 MG TAB PO PRN (08:47)
[2021-12-29] MEDS: HumaLOG 300 UNITS/3 ML VIAL SC PRN (17:07)
[2021-12-29] MEDS: Melatonin 3 MG TAB PO PRN (20:48)
[2021-12-29] MEDS: Multivit, Therapeutic 1 TAB PO SCH (20:48)
[2021-12-29] MEDS: Cyanocobalamin (Vitamin B-12) 1,000 MCG TAB PO SCH (20:48)
[2021-12-30 05:44] LABS: Platelet Count 304 thou/uL (130-400)
[2021-12-30] MEDS: glyBURIDE 5 MG TAB PO SCH ×2 (09:20→17:13)
[2021-12-30] MEDS: Losartan Potassium 50 MG TAB PO SCH (09:21)
[2021-12-30] MEDS: Apixaban 5 MG TAB PO SCH ×2 (09:21→21:06)
[2021-12-30] MEDS: Tamsulosin HCl 0.4 MG CAP PO SCH (09:21)
[2021-12-30] MEDS: Alogliptin 25 MG TAB PO SCH (09:21)
[2021-12-30] MEDS: Amlodipine 5 MG TAB PO SCH (09:21)
[2021-12-30] MEDS: Folic Acid 1 MG TAB PO SCH (09:22)
[2021-12-30] MEDS: Potassium Chloride 20 MEQ TAB PO SCH (09:22)
[2021-12-30] MEDS: predniSONE 5 MG TAB PO SCH (09:22)
[2021-12-30] MEDS: Lantus 1000 UNITS/10 ML VIAL SC SCH (09:26)
[2021-12-30] MEDS: HumaLOG 300 UNITS/3 ML VIAL SC PRN (12:17)
[2021-12-30] MEDS: Multivit, Therapeutic 1 TAB PO SCH (21:05)
[2021-12-30] MEDS: Cyanocobalamin (Vitamin B-12) 1,000 MCG TAB PO SCH (21:06)
[2021-12-30] MEDS: Melatonin 3 MG TAB PO PRN (21:06)
[2021-12-31] MEDS ORDERED: Acetaminophen 325 MG TAB PO PRN (06:00)
[2021-12-31] MEDS: glyBURIDE 5 MG TAB PO SCH ×2 (08:13→16:27)
[2021-12-31] MEDS: Potassium Chloride 20 MEQ TAB PO SCH (08:13)
[2021-12-31] MEDS: Losartan Potassium 50 MG TAB PO SCH (08:14)
[2021-12-31] MEDS: predniSONE 5 MG TAB PO SCH (08:14)
[2021-12-31] MEDS: Amlodipine 5 MG TAB PO SCH (08:14)
[2021-12-31] MEDS: Alogliptin 25 MG TAB PO SCH (08:15)
[2021-12-31] MEDS: Apixaban 5 MG TAB PO SCH ×2 (08:15→20:52)
[2021-12-31] MEDS: Tamsulosin HCl 0.4 MG CAP PO SCH (08:15)
[2021-12-31] MEDS: Folic Acid 1 MG TAB PO SCH (08:15)
[2021-12-31] MEDS: Ergocalciferol 1.25 MG(50,000 UNITS) CAP PO SCH (08:20)
[2021-12-31] MEDS: Lantus 1000 UNITS/10 ML VIAL SC SCH (08:21)
[2021-12-31] MEDS: HumaLOG 300 UNITS/3 ML VIAL SC PRN ×2 (12:09→17:24)
[2021-12-31] MEDS: Melatonin 3 MG TAB PO PRN (20:52)
[2021-12-31] MEDS: Multivit, Therapeutic 1 TAB PO SCH (20:52)
[2021-12-31] MEDS: Cyanocobalamin (Vitamin B-12) 1,000 MCG TAB PO SCH (20:52)
[2022-01-01] MEDS: Lantus 1000 UNITS/10 ML VIAL SC SCH (08:13)
[2022-01-01] MEDS: predniSONE 5 MG TAB PO SCH (08:15)
[2022-01-01] MEDS: Apixaban 5 MG TAB PO SCH ×2 (08:15→20:49)
[2022-01-01] MEDS: Tamsulosin HCl 0.4 MG CAP PO SCH (08:15)
[2022-01-01] MEDS: glyBURIDE 5 MG TAB PO SCH ×2 (08:15→17:03)
[2022-01-01] MEDS: Amlodipine 5 MG TAB PO SCH (08:15)
[2022-01-01] MEDS: Losartan Potassium 50 MG TAB PO SCH (08:16)
[2022-01-01] MEDS: Alogliptin 25 MG TAB PO SCH (08:16)
[2022-01-01] MEDS: Potassium Chloride 20 MEQ TAB PO SCH (08:16)
[2022-01-01] MEDS: Folic Acid 1 MG TAB PO SCH (08:16)
[2022-01-01] MEDS: HumaLOG 300 UNITS/3 ML VIAL SC PRN (11:54)
[2022-01-01] MEDS: Cyanocobalamin (Vitamin B-12) 1,000 MCG TAB PO SCH (20:49)
[2022-01-01] MEDS: Melatonin 3 MG TAB PO PRN (20:49)
[2022-01-01] MEDS: Multivit, Therapeutic 1 TAB PO SCH (20:49)
[2022-01-02] MEDS: Losartan Potassium 50 MG TAB PO SCH (08:39)
[2022-01-02] MEDS: Potassium Chloride 20 MEQ TAB PO SCH (08:39)
[2022-01-02] MEDS: glyBURIDE 5 MG TAB PO SCH ×2 (08:39→17:30)
[2022-01-02] MEDS: predniSONE 5 MG TAB PO SCH (08:39)
[2022-01-02] MEDS: Alogliptin 25 MG TAB PO SCH (08:39)
[2022-01-02] MEDS: Folic Acid 1 MG TAB PO SCH (08:40)
[2022-01-02] MEDS: Tamsulosin HCl 0.4 MG CAP PO SCH (08:40)
[2022-01-02] MEDS: Apixaban 5 MG TAB PO SCH ×2 (08:40→20:15)
[2022-01-02] MEDS: Amlodipine 5 MG TAB PO SCH (08:41)
[2022-01-02] MEDS: Lantus 1000 UNITS/10 ML VIAL SC SCH (08:42)
[2022-01-02] MEDS: HumaLOG 300 UNITS/3 ML VIAL SC PRN ×3 (08:42→17:30)
[2022-01-02] MEDS: Cyanocobalamin (Vitamin B-12) 1,000 MCG TAB PO SCH (20:15)
[2022-01-02] MEDS: Melatonin 3 MG TAB PO PRN (20:16)
[2022-01-02] MEDS: Multivit, Therapeutic 1 TAB PO SCH (20:16)
[2022-01-03 05:12] LABS: Hemoglobin 11.4 g/dL (12.0-16.0); Platelet Count 303 thou/uL (130-400)
[2022-01-03] MEDS: Potassium Chloride 20 MEQ TAB PO SCH (08:03)
[2022-01-03] MEDS: Tamsulosin HCl 0.4 MG CAP PO SCH (08:04)
[2022-01-03] MEDS: Amlodipine 5 MG TAB PO SCH (08:04)
[2022-01-03] MEDS: Alogliptin 25 MG TAB PO SCH (08:04)
[2022-01-03] MEDS: Losartan Potassium 50 MG TAB PO SCH (08:04)
[2022-01-03] MEDS: Apixaban 5 MG TAB PO SCH ×2 (08:04→20:56)
[2022-01-03] MEDS: Lantus 1000 UNITS/10 ML VIAL SC SCH (08:05)
[2022-01-03] MEDS: glyBURIDE 5 MG TAB PO SCH ×2 (08:05→16:52)
[2022-01-03] MEDS: Bisacodyl 5 MG TAB PO PRN (08:05)
[2022-01-03] MEDS: Folic Acid 1 MG TAB PO SCH (08:05)
[2022-01-03] MEDS: predniSONE 5 MG TAB PO SCH (08:05)
[2022-01-03] MEDS: HumaLOG 300 UNITS/3 ML VIAL SC PRN (12:15)
[2022-01-03] MEDS: Cyanocobalamin (Vitamin B-12) 1,000 MCG TAB PO SCH (20:56)
[2022-01-03] MEDS: Multivit, Therapeutic 1 TAB PO SCH (20:56)
[2022-01-03] MEDS: Melatonin 3 MG TAB PO PRN (20:56)
[2022-01-04] MEDS: Lantus 1000 UNITS/10 ML VIAL SC SCH (08:19)
[2022-01-04] MEDS: Amlodipine 5 MG TAB PO SCH (08:20)
[2022-01-04] MEDS: Alogliptin 25 MG TAB PO SCH (08:20)
[2022-01-04] MEDS: predniSONE 5 MG TAB PO SCH (08:24)
[2022-01-04] MEDS: Folic Acid 1 MG TAB PO SCH (08:24)
[2022-01-04] MEDS: Potassium Chloride 20 MEQ TAB PO SCH (08:25)
[2022-01-04] MEDS: Losartan Potassium 50 MG TAB PO SCH (08:25)
[2022-01-04] MEDS: glyBURIDE 5 MG TAB PO SCH ×2 (08:25→16:43)
[2022-01-04] MEDS: Tamsulosin HCl 0.4 MG CAP PO SCH (08:25)
[2022-01-04] MEDS: Apixaban 5 MG TAB PO SCH ×2 (08:25→20:35)
[2022-01-04] MEDS: HumaLOG 300 UNITS/3 ML VIAL SC PRN (12:06)
[2022-01-04] MEDS: Melatonin 3 MG TAB PO PRN (20:35)
[2022-01-04] MEDS: Multivit, Therapeutic 1 TAB PO SCH (20:35)
[2022-01-04] MEDS: Cyanocobalamin (Vitamin B-12) 1,000 MCG TAB PO SCH (20:35)
[2022-01-05 07:07] VITALS: TEMP 98.8
[2022-01-05] MEDS: Lantus 1000 UNITS/10 ML VIAL SC SCH (08:44)
[2022-01-05] MEDS: Alogliptin 25 MG TAB PO SCH (08:45)
[2022-01-05] MEDS: Tamsulosin HCl 0.4 MG CAP PO SCH (08:45)
[2022-01-05] MEDS: Potassium Chloride 20 MEQ TAB PO SCH (08:47)
[2022-01-05] MEDS: glyBURIDE 5 MG TAB PO SCH (08:47)
[2022-01-05] MEDS: Losartan Potassium 50 MG TAB PO SCH (08:47)
[2022-01-05] MEDS: Apixaban 5 MG TAB PO SCH (08:47)
[2022-01-05] MEDS: Folic Acid 1 MG TAB PO SCH (08:47)
[2022-01-05] MEDS: predniSONE 5 MG TAB PO SCH (08:48)
[2022-01-05] MEDS: Amlodipine 5 MG TAB PO SCH (08:49)
[2022-01-05 08:52] VITALS: BP 102/60
[2022-01-05] MEDS: HumaLOG 300 UNITS/3 ML VIAL SC PRN (12:00)
[2022-01-15] MEDS ORDERED: INFLIXIMAB DYYB 100 MG IV SCH (09:00)
== END 2022-01-05 12:25 | disposition home or self-care (01) | DRG 948 ==
LOC: BURMED 12:57
PROVIDERS: ADMIT Family Medicine; ATTEND Family Medicine
DX: R53.1 Weakness (principal); Z20.822 Contact with and (suspected) exposure to COVID-19; I48.91 Unspecified atrial fibrillation; E11.9 Type 2 diabetes mellitus without complications; I10 Essential (primary) hypertension; F41.9 Anxiety disorder, unspecified; F32.A Depression, unspecified; R53.81 Other malaise; Z66 Do not resuscitate; G47.00 Insomnia, unspecified; M06.9 Rheumatoid arthritis, unspecified; K59.00 Constipation, unspecified; R33.9 Retention of urine, unspecified; Z86.16 Personal history of COVID-19; Z88.2 Allergy status to sulfonamides
CPT/HCPCS: 36415; 36416; 74177; 80048; 82565; 85014; 85018; 85049; J1815; J7512; Q9967

== ENCOUNTER 2023-03-29 09:55 | Emergency (ER) | payer SELFPAY ==
[2023-03-29] MEDS ORDERED: dilTIAZem 25 MG/5 ML VIAL ONE ×2 (10:08→10:33)
[2023-03-29] MEDS ORDERED: Aspirin Chewable 81 MG TAB ONE (10:08)
[2023-03-29 10:20] LABS: INR-International Normal Ratio 1.4; Prothrombin Time 17.6 sec (12.0-14.7)
[2023-03-29 10:21] LABS: PTT 30.1 sec (22.9-36.1)
[2023-03-29 10:26] LABS: ALT (SGPT) 30 U/L (8-55); AST (SGOT) 31 U/L (5-34); Albumin 2.5 g/dL (3.4-4.8); Alkaline Phosphatase 66 U/L (40-110); Anion Gap 11 mmol/L (10-20); BUN (Urea Nitrogen) 17 mg/dL (9.8-20.1); Bilirubin, Total 0.6 mg/dL (0.2-1.2); Calc. Creatinine Clearance 0 mL/min (70-130); Calcium 8.4 mg/dL (7.8-10.44); Carbon Dioxide 23 mmol/L (23-31); Chloride 103 mmol/L (98-107); Estimated GFR 98; Glucose 197 mg/dL (80-115); Magnesium 1.5 mg/dL (1.6-2.6); Potassium 3.3 mmol/L (3.5-5.1); Protein, Total 5.5 g/dL (5.8-8.1); Red Blood Cell (RBC) Count 4.16 mill/uL (4.20-5.40); Sodium 134 mmol/L (136-145); White Blood Cell (WBC) Count 16.3 10x3/uL (4.8-10.8)
[2023-03-29 10:27] LABS: #Basophils 0.1 thou/uL (0.0-0.2); #Eosinphils 0.2 thou/uL (0.0-0.7); #Monocytes 0.7 thou/uL (0.11-0.59); #Neutrophils 13.5 thou/uL (1.40-6.50); %Basophils 0.5 % (0.0-1.0); %Eosinophils 1.4 % (0.0-10.0); %Lymphocytes 10.7 % (21.0-51.0); %Monocytes 4.6 % (0.0-10.0); %Neutrophils 82.8 % (42.0-75.0); Hematocrit 31.6 % (36.0-47.0); MDiff Complete? YES; Manual Diff?? NO; Mean Corpuscular HGB CONC 31.5 g/dL (32.0-36.0); Mean Corpuscular Volume 76.2 fl (78.0-98.0); Mean Platelet Volume 6.7 fL (7.4-10.4); Platelet Count 514 10x3/uL (130-400); RBC Distribution Width 12.9 % (11.5-14.5)
[2023-03-29 10:28] LABS: Hypochromia SLIGHT = 6-15 cells (100X) (0-5/hpf); Microcytosis SLIGHT = 6-15 cells (100X) (0-5/hpf)
[2023-03-29] MEDS ORDERED: dilTIAZem 125 MG/25 ML SDV ONE (10:33)
[2023-03-29 10:35] LABS: Troponin I 0.049 ng/mL (< 0.028)
== END 2023-03-29 15:05 | disposition short-term general hospital (02) ==
LOC: BURERS 09:55
DX: I48.91 Unspecified atrial fibrillation (principal); I10 Essential (primary) hypertension; E11.9 Type 2 diabetes mellitus without complications; M06.9 Rheumatoid arthritis, unspecified; Z79.01 Long term (current) use of anticoagulants; Z79.4 Long term (current) use of insulin; Z79.899 Other long term (current) drug therapy
CPT/HCPCS: 71045; 83735; 83880; 84484; 85610; 85730; 93005; 94760; 96365; 96366; 96376